=== PATIENT | male | born 1990 | race Two or more races ===

== ENCOUNTER 2022-03-13 01:44 | Inpatient (IN) | payer OTHER, SELFPAY ==
[2022-03-13] VITALS (7 sets, daily range): BP systolic 134–164; BP diastolic 82–107; PULSE 76–137; RESP 18–26; TEMP 36.9; O2SAT 95–99; BMI 34.3
--- NOTE | 2022-03-13 | ECG_ITS ---
Test Reason : TACHYCARDIA Blood Pressure : / mmHG Vent. Rate : 123 BPM Atrial Rate : 123 BPM P-R Int : 112 ms QRS Dur : 074 ms QT Int : 296 ms P-R-T Axes : 048 048 009 degrees QTc Int : 423 ms Sinus tachycardia Otherwise normal ECG No previous ECGs available Referred By: Generic ED Physician Electronically Signed By:CHOCO LANG
--- NOTE | ~2022-03-13 | CT_ITS ---
EXAMINATION: CT ABDOMEN AND PELVIS WITHOUT CONTRAST CLINICAL INFORMATION: 31-year-old male with back pain and acute kidney injury. COMPARISON: None TECHNIQUE: Multidetector volumetric imaging was performed from the superior aspect of the liver through the pubic symphysis. Sagittal and coronal reformatted images were obtained on the technologist's workstation. This CT examination was performed using dose optimization techniques as appropriate, variously including the following: *Automated exposure control *Adjustment of mA and/or kV according to patient size (this includes techniques or standardized protocols for targeted exams where dose is matched to indication/reason for exam; i.e. extremities or head) *Use of iterative reconstruction technique DLP: 675 mGy-cm FINDINGS: Visualized lung bases are well aerated. The liver is normal in size but demonstrates diffusely decreased attenuation. The gallbladder is normal in appearance. The pancreas, spleen and adrenal glands are unremarkable. Symmetrically sized kidneys. No renal calculi or hydronephrosis bilaterally. Normal caliber loops of small and large bowel. Normal appendix. Normal caliber abdominal aorta. No retroperitoneal lymphadenopathy. The bladder is normal in appearance. The prostate gland is normal in size. No gross free pelvic fluid. No inguinal lymphadenopathy. No acute osseous abnormality. CT/CT abdomen pelvis wo con IMPRESSION: -No renal calculi or hydronephrosis of either kidney. -Diffusely decreased liver attenuation suggesting hepatic steatosis. Correlation with liver enzymes recommended. Fleischner guidelines were followed.
--- NOTE | 2022-03-13 02:54 | ED_ITS ---
HPI - General Adult General Chief complaint: Back Pain/Injury Stated complaint: L leg cramp/ lower back spasm Time Seen by Provider: 03/13/22 02:54 Source: patient Mode of arrival: ambulatory Limitations: no limitations History of Present Illness HPI narrative: Patient with history of prior back surgery without significant pain does not take any pain medicine today was working [employer] all day came home complaining of spasm in the back down to legs was tachycardic on arrival patient denied any use of drugs no fever no chills no urinary complaints patient does have history of hypertension but is not taking any medication patient been working [employer] outside all the time drinking fluids but may not be enough Related Data Allergies Allergy/AdvReac Type Severity Reaction Status Date / Time tramadol [TRAMADOL] Allergy Unknown RASH Verified 03/13/22 02:10 Review of Systems Review of Systems: Yes all other systems are reviewed and are negative [facility] Social History Social History Advance Directives: No Advance Directives Information Provided: No Physical Exam ED Vital Signs: Vital Signs - 24 hr 03/13/22 02:08 03/13/22 03:37 03/13/22 04:19 Temperature 98.5 F Pulse Rate 137 H 111 H 101 H Respiratory Rate 18 26 H 22 H Blood Pressure 164/107 H 147/103 H Pulse Oximetry 95 97 97 Oxygen Delivery Method Room Air Room Air Room Air BMI result Body Mass Index 34.3 Appearance: Alert. Oriented X3. No acute distress. Eyes: PERRLA, ENT: Pharynx normal. Oral Mucosa moist Neck: Normal inspection. Neck supple. CVS: Normal heart rate and rhythm. Pulses normal. Respiratory: No respiratory distress. Equal air entry bilateral, no wheezing/rales/rhonchi Abdomen: Soft and nontender. Bowel sounds are present, no mass palpable, no CVA tenderness Skin: Skin warm and dry. Normal skin color. Normal skin turgor. Extremities: No lower extremity edema. No calf tenderness back: Diffuse pain no focal spinal tenderness Neuro: Oriented X 3. No motor deficit. No sensory deficit Medical Decision Making MDM Narrative Medical decision making narrative: Patient has GENA with rhabdomyolysis will admit patient for IV hydration during stay in the ED video network engineer showed frequent SVT lasting only for few seconds Lab Data Lab results reviewed: Yes I reviewed the patient's lab results. Result diagrams: 03/13/22 03:12 03/13/22 03:12 Labs: Lab Results 03/13/22 03/13/22 03/13/22 Range/Units 03:12 03:12 03:12 WBC 17.6 H (4.8-10.8) X10*3/uL RBC 5.15 (4.60-5.80) X10*6/uL Hgb 15.7 (14.0-18.0) g/dl Hct 45.7 (42.0-52.0) % MCV 88.7 (80.0-98.0) fL MCH 30.5 (27.0-33.0) pg MCHC 34.4 (31.0-36.0) g/dl RDW 13.3 (11.0-16.0) % Plt Count 255 (160-400) X10*3/uL MPV 11.1 (9.4-12.4) fL Immature Gran % (Auto) 0.4 (0.0-0.4) % Neut % (Auto) 82.1 H (45-73) % Lymph % (Auto) 10.6 L (20-40) % [place] % (Auto) 6.8 (2-11) % Eos % (Auto) 0.0 (0-4) % Baso % (Auto) 0.1 (0-2) % Lymph # (Auto) 1.9 (1.2-4.9) X10*3/uL [place] # (Auto) 1.2 (0.1-1.2) X10*3/uL Eos # (Auto) 0.0 (0.0-0.4) X10*3/uL Baso # (Auto) 0.0 (0.0-0.2) X10*3/uL Abs Immat Gran (auto) 0.07 H (0.00-0.03) X10*3/uL Absolute Neuts (auto) 14.5 H (2.0-8.3) x10*3/uL Absolute Nucleated RBC 0.000 (0.0-0.012) X10*3/uL Nucleated RBC % (auto) 0.0 (0.0-0.2) /100WBC Sodium 136 (135-145) mmol/L Potassium 4.1 (3.3-5.1) mmol/L Chloride 98 (96-108) mmol/L Carbon Dioxide 20 L (22-29) mmol/L Anion Gap 22 H (12-20) BUN 24 H (9-16) mg/dL Creatinine 2.16 H (0.5-1.4) mg/dL Estim Creat Clear Calc 51.2 Estimated GFR 36 Random Glucose 100 (60-115) mg/dL Calcium 10.9 H (8.4-10.2) mg/dL Total Bilirubin 1.0 (0.0-1.0) mg/dL AST 51 H (5-37) U/L ALT 36 (0-40) U/L Alkaline Phosphatase 118 H (39-117) U/L Total Creatine Kinase 1249 H (38-174) U/L Total Protein 9.7 H (6.5-8.0) g/dL Albumin 5.6 H (3.5-5.0) g/dL COVID-19 (PEGGY) Negative (Negative) COVID-19 Clin Com See Note Discharge Plan Discharge Clinical Impression: Acute renal failure due to rhabdomyolysis Patient Disposition: Admitted As Inpatient
[2022-03-13 03:18] LABS: Basophils Percent Auto 0.1 % (0-2); Hematocrit 45.7 % (42.0-52.0); Hemoglobin 15.7 g/dl (14.0-18.0); Imm Gran Abs Auto 0.07 X10*3/uL (0.00-0.03); Imm Gran Pct Auto 0.4 % (0.0-0.4); Lymphocytes Absolute Auto 1.9 X10*3/uL (1.2-4.9); Lymphocytes Percent Auto 10.6 % (20-40); MANUAL DIFF FLAG NO; Mean Corpuscular HGB Conc 34.4 g/dl (31.0-36.0); Mean Corpuscular Hemoglobin 30.5 pg (27.0-33.0); Mean Corpuscular Volume 88.7 fL (80.0-98.0); Mean Platelet Volume 11.1 fL (9.4-12.4); Monocytes Absolute Auto 1.2 X10*3/uL (0.1-1.2); Monocytes Percent Auto 6.8 % (2-11); Neutrophils Absolute Auto 14.5 x10*3/uL (2.0-8.3); Neutrophils Percent Auto 82.1 % (45-73); Platelet Count 255 X10*3/uL (160-400); Red Blood Count 5.15 X10*6/uL (4.60-5.80); Red Cell Distribution Width 13.3 % (11.0-16.0); White Blood Count 17.6 X10*3/uL (4.8-10.8)
[2022-03-13] MEDS: Cyclobenzaprine HCl 10 MG TABLET PO (03:27)
[2022-03-13 03:34] LABS: COVID-19 Test Negative (Negative)
[2022-03-13] MEDS: 0.9 % Sodium Chloride 1,000 ML 999 ML IV ×2 (03:35→05:47)
[2022-03-13] MEDS: Ketorolac Tromethamine 30 MG/ML VIAL IVPUSH (03:37)
[2022-03-13 03:41] LABS: Alanine Aminotransferase 36 U/L (0-40); Albumin Level 5.6 g/dL (3.5-5.0); Alkaline Phosphatase 118 U/L (39-117); Anion Gap 22 (12-20); Aspartate Amino Transferase 51 U/L (5-37); Blood Urea Nitrogen 24 mg/dL (9-16); Calcium 10.9 mg/dL (8.4-10.2); Carbon Dioxide 20 mmol/L (22-29); Chloride 98 mmol/L (96-108); Creatinine Clr Calc Pharmacy 51.2; Estimated Glomerular Filt Rate 36; Glucose Random 100 mg/dL (60-115); Potassium 4.1 mmol/L (3.3-5.1); Sodium 136 mmol/L (135-145); Total Protein 9.7 g/dL (6.5-8.0)
[2022-03-13 05:48] LABS: Influenza A Negative (Negative); Influenza B2 Negative (Negative)
[2022-03-13 05:51] LABS: Lactic Acid 1.1 mmol/L (0.5-2.0)
--- NOTE | 2022-03-13 07:08 | P.HPHOSP_ITS ---
History of Present Illness Date of Service: 03/13/22 Chief Complaint: back pain 31M with no significant past medical history Presented with back spasms. patient states that he has had lower back pain for about 1 week, 06/26, radiating down left leg, worse on exertion, relieved by rest. He denies taking any medications for this. Patient works at [employer] and has been outside over the weekend with >90F degrees temperatures. in ED patient noted to be in acute kidney injury with mild rhabdomyolysis with CPK about 1200, creatinine 2.16, hemoconcentrated. Review of Systems Review of Systems: Constitutional: Denies fever, denies Chills Eyes: denies blurry vision ENT: denies sore throat CVS: denies chest pain Respiratory: Denies dyspnea GI: no abdominal pain : denies dysuria MSK: back pain Skin: denies rash Neuro: denies specific motor weakness Psych: denies suicidal ideation Endocrine: denies heat/cold intolerance Hematologic: denies easy bleeding Allergy: denies hives PMFSH Family History Father Hypertension Social History Alcohol intake: former Patient Tobacco Use Status: Never used Tobacco Substance Use Type: Marijuana Substance Use Type Other:: history of cocaine, no longer using Advance Directives: No Advance Directives Information Provided: No Meds Allergies Allergy/AdvReac Type Severity Reaction Status Date / Time tramadol [TRAMADOL] Allergy Unknown RASH Verified 03/13/22 02:10 Active Medications: Current Medications Acetaminophen (Acetaminophen 325 Mg Tablet) 650 mg PO Q6H PRN PRN Reason: Pain, Mild (Pain Scale 1-3) Lactated Ringer's (Lr) 1,000 mls @ 125 mls/hr IVCONT .Q8H [facility] Pharmacy Consult (Consult Rx Perform Med Rec) 1 each MISCELLANE ONCE PRN PRN Reason: Consult order Pharmacy Consult (Consult Rx Perform Med Rec) 1 each MISCELLANE ONCE PRN PRN Reason: Consult order Sodium Chloride (0.9 % Sodium Chloride Flush 3 Ml Syringe) 3 ml IVFLUSH QSHIFT [facility] Physical Exam Vital Signs and Narrative: Vital Signs: Last Vital Signs Temp 98.5 F 03/13/22 02:08 Pulse 109 H 03/13/22 06:03 Resp 20 03/13/22 06:03 BP 136/86 03/13/22 06:03 Pulse Ox 97 03/13/22 06:03 O2 Del Method 03/13/22 06:03 BMI result Body Mass Index 34.3 General: no acute distress HEENT: atraumatic Neck: normal to visual inspection CVS: S1, S2, RRR Resp: CTA bilateral Chest: non tender GI: soft, non tender, non distended : no CVA tenderness Skin: no rashes Extremities: no edema Neuro: Oriented X3, grossly intact Psych: cooperative Results Labs CBC and Chem 7: 03/13/22 03:12 03/13/22 03:12 Labs: Laboratory Results - last 24 hr 03/13/22 03/13/22 03/13/22 03:12 03:12 03:12 MCV 88.7 MCH 30.5 MCHC 34.4 RDW 13.3 Plt Count 255 MPV 11.1 Immature Gran % (Auto) 0.4 Neut % (Auto) 82.1 H Lymph % (Auto) 10.6 L [place] % (Auto) 6.8 Eos % (Auto) 0.0 Baso % (Auto) 0.1 Lymph # (Auto) 1.9 [place] # (Auto) 1.2 Eos # (Auto) 0.0 Baso # (Auto) 0.0 Abs Immat Gran (auto) 0.07 H Absolute Neuts (auto) 14.5 H Absolute Nucleated RBC 0.000 Nucleated RBC % (auto) 0.0 Anion Gap 22 H Estim Creat Clear Calc 51.2 Estimated GFR 36 Random Glucose 100 Lactic Acid Calcium 10.9 H Total Bilirubin 1.0 AST 51 H ALT 36 Alkaline Phosphatase 118 H Total Creatine Kinase 1249 H Total Protein 9.7 H Albumin 5.6 H COVID-19 (PEGGY) Negative COVID-19 Clin Com See Note Influenza Type A (SNEHA) Influenza Type B (SNEHA) Influenza A & B Note 03/13/22 03/13/22 05:28 05:28 MCV MCH MCHC RDW Plt Count MPV Immature Gran % (Auto) Neut % (Auto) Lymph % (Auto) [place] % (Auto) Eos % (Auto) Baso % (Auto) Lymph # (Auto) [place] # (Auto) Eos # (Auto) Baso # (Auto) Abs Immat Gran (auto) Absolute Neuts (auto) Absolute Nucleated RBC Nucleated RBC % (auto) Anion Gap Estim Creat Clear Calc Estimated GFR Random Glucose Lactic Acid 1.1 Calcium Total Bilirubin AST ALT Alkaline Phosphatase Total Creatine Kinase Total Protein Albumin COVID-19 (PEGGY) COVID-19 Clin Com Influenza Type A (SNEHA) Negative Influenza Type B (SNEHA) Negative Influenza A & B Note See Note Assessment and Plan (1) Acute renal failure due to rhabdomyolysis: Status: Acute Plan 31M presented with back pain found to be in acute kidney injury GENA most likely severe dehydration due to hot weather, mild rhabdomyolysis aggressive hydration monitor BMP will check CT abdomen to rule out obstruction obesity weight loss recommended DVT prophylaxis -early ambulation, low risk full code patient with significant acute kidney injury requiring IV hydration and close monitoring therefore expected require least 2 midnights in the hospital Quality Stroke Does the patient have a stroke diagnosis?: No VTE Prior VTE?: No VTE Risk Level:: Medical - low VTE Device Contraindication: Treatment Not Indicated VTE Drug Contraindication: Treatment Not Indicated
[2022-03-13] MEDS: Lactated Ringers 1,000 ML 125 ML IVCONT (07:59)
--- NOTE | 2022-03-13 09:53 | PHA.MEDREC ---
Pharmacy Consult ? Medication Reconciliation Pharmacy has completed the medication reconciliation. Patient confirmed all medications. Reports using PRN and takes no OTC. Claire Pineda, DcD
[2022-03-13 11:48] LABS: Appearance Urine HAZY; Color Urine YELLOW; Glucose Urine UA NEG (NEG); Leukocyte Esterase Urine NEG (NEG); Nitrite Urine NEG (NEG); PH 5.5 (5.0-8.0); Specific Gravity - Urine >= 1.030 (1.005-1.025); Urine Blood NEG (NEG); Urine Ketones 15 MG/DL (NEG); Urine Protein TRACE MG/DL (NEG-TRACE)
[2022-03-13 12:20] LABS: Amphetamine Screen Urine Not Detected (Not Detect); Barbiturates, Urine Not Detected (Not Detect); Benzodiazepines Screen Urine Not Detected (Not Detect); Cocaine Screen Urine Not Detected (Not Detect); Fentanyl, urine Not Detected (Not Detect); Opiate Screen Urine Not Detected (Not Detect)
--- NOTE | 2022-03-13 13:42 | PC.NURSE ---
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 this contract writer asked pt if he could call his seal delivery vehicle officer and let him know that he was admitted to the hospital. pt stated that he did not know the number and his cell phone was at home. pt given education on risks of leaving against medical advice. pt verbalized understanding. Adriana, Clinical Coordinator present during conversation between this contract writer and pt. paperwork signed by pt, witnessed by this contract writer and Adriana, Clinical Coordinator.
--- NOTE | 2022-03-13 13:50 | MHC.CM.PN ---
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 PT REPORTS HE IS COVID VACCINATED AND HAS RECEIVED ONE [employer] PT SIGNED OUT AMA SHORTLY AFTER INTERVIEW HE REPORTS HE WILL RETURN IF NEEDED HOWEVER NEEDS TO CHECK IN WITH HIS PROGRAM AND CHARGE HIS [employer] PASS PROVIDED
--- NOTE | 2022-03-13 15:31 | PM.DS ---
DS: Providers Provider Date of Service: 03/13/22 Date of admission: 03/13/22 07:06 Primary care physician: Unknown Physician DS: Diagnosis Discharge Diagnosis (1) Acute renal failure due to rhabdomyolysis: Status: Acute DS: Summary Hospital Course Hospital Course: from initial hpi: Chief Complaint: back pain 31M? with no significant past medical history ? Presented with back spasms.? patient states that he has had lower back pain for about 1 week, /10, radiating down left leg, worse on exertion, relieved by rest.? He denies taking any medications for this.? Patient works at [employer] and has been outside over the weekend with >90F degrees? temperatures.? in ED patient noted to be in acute kidney injury with mild rhabdomyolysis with CPK about 1200, creatinine 2.16, hemoconcentrated. hospital course: Patient was admitted for acute kidney injury likely due to dehydration, mild rhabdomyolysis. He was treated with IV fluids. CT abdomen did not show any evidence of obstruction, did show fatty liver. Patient also noted to be morbidly obese and weight loss is recommended. Plan was to continue hydration and monitor BMP closely due to significant acute kidney injury, however, patient left against medical advice prior to being seen by physician, he demonstrated understanding of his decision to nursing. Time Spent with Patient Time attestation: Total time spent providing and/or coordinating discharge services: Discharge coordination time: Greater than 30 minutes Quality: Safe Use of Opioids Does Pt have an Active Cancer Diagnosis on the Problem List?: No Quality: Stroke Does the patient have a stroke diagnosis?: No Physical Exam Vital Signs: Vital Signs: Last Vital Signs Temp 98.5 F 03/13/22 02:08 Pulse 76 03/13/22 13:18 Resp 20 03/13/22 13:18 BP 138/84 03/13/22 13:18 Pulse Ox 99 03/13/22 13:18 O2 Del Method 03/13/22 13:18 BMI result Body Mass Index 34.3 General: AO X 3, no acute distress Resp: CTA bilateral, no accessory muscles used CVS: S1,S2,RRR GI: soft, non tender, non distended Neuro: motor grossly intact, alert Psych: appropriate affect, appropriate insight DS: Data Data Completed and Pending Labs on day of discharge: Laboratory Results - last 24 hr 03/13/22 03/13/22 03/13/22 03:12 03:12 03:12 WBC 17.6 H RBC 5.15 Hgb 15.7 Hct 45.7 MCV 88.7 MCH 30.5 MCHC 34.4 RDW 13.3 Plt Count 255 MPV 11.1 Immature Gran % (Auto) 0.4 Neut % (Auto) 82.1 H Lymph % (Auto) 10.6 L [place] % (Auto) 6.8 Eos % (Auto) 0.0 Baso % (Auto) 0.1 Lymph # (Auto) 1.9 [place] # (Auto) 1.2 Eos # (Auto) 0.0 Baso # (Auto) 0.0 Abs Immat Gran (auto) 0.07 H Absolute Neuts (auto) 14.5 H Absolute Nucleated RBC 0.000 Nucleated RBC % (auto) 0.0 Sodium 136 Potassium 4.1 Chloride 98 Carbon Dioxide 20 L Anion Gap 22 H BUN 24 H Creatinine 2.16 H Estim Creat Clear Calc 51.2 Estimated GFR 36 Random Glucose 100 Lactic Acid Calcium 10.9 H Total Bilirubin 1.0 AST 51 H ALT 36 Alkaline Phosphatase 118 H Total Creatine Kinase 1249 H Total Protein 9.7 H Albumin 5.6 H Urine Color Urine Appearance Urine pH Ur Specific [place] Urine Protein Urine Glucose (UA) Urine Ketones Urine Blood Urine Nitrite Ur Leukocyte Esterase Urine Opiates Screen Urine Fentanyl Screen Ur Barbiturates Screen Ur Phencyclidine Scrn Ur Amphetamines Screen U Benzodiazepines Scrn Urine Cocaine Screen U Marijuana (THC) Screen COVID-19 (PEGGY) Negative COVID-19 Clin Com See Note Influenza Type A (SNEHA) Influenza Type B (SNEHA) Influenza A & B Note 03/13/22 03/13/22 03/13/22 05:28 05:28 11:39 WBC RBC Hgb Hct MCV MCH MCHC RDW Plt Count MPV Immature Gran % (Auto) Neut % (Auto) Lymph % (Auto) [place] % (Auto) Eos % (Auto) Baso % (Auto) Lymph # (Auto) [place] # (Auto) Eos # (Auto) Baso # (Auto) Abs Immat Gran (auto) Absolute Neuts (auto) Absolute Nucleated RBC Nucleated RBC % (auto) Sodium Potassium Chloride Carbon Dioxide Anion Gap BUN Creatinine Estim Creat Clear Calc Estimated GFR Random Glucose Lactic Acid 1.1 Calcium Total Bilirubin AST ALT Alkaline Phosphatase Total Creatine Kinase Total Protein Albumin Urine Color YELLOW Urine Appearance HAZY Urine pH 5.5 Ur Specific [place] >= 1.030 H Urine Protein TRACE Urine Glucose (UA) NEG Urine Ketones 15 Urine Blood NEG Urine Nitrite NEG Ur Leukocyte Esterase NEG Urine Opiates Screen Urine Fentanyl Screen Ur Barbiturates Screen Ur Phencyclidine Scrn Ur Amphetamines Screen U Benzodiazepines Scrn Urine Cocaine Screen U Marijuana (THC) Screen COVID-19 (PEGGY) COVID-19 Clin Com Influenza Type A (SNEHA) Negative Influenza Type B (SNEHA) Negative Influenza A & B Note See Note 03/13/22 11:39 WBC RBC Hgb Hct MCV MCH MCHC RDW Plt Count MPV Immature Gran % (Auto) Neut % (Auto) Lymph % (Auto) [place] % (Auto) Eos % (Auto) Baso % (Auto) Lymph # (Auto) [place] # (Auto) Eos # (Auto) Baso # (Auto) Abs Immat Gran (auto) Absolute Neuts (auto) Absolute Nucleated RBC Nucleated RBC % (auto) Sodium Potassium Chloride Carbon Dioxide Anion Gap BUN Creatinine Estim Creat Clear Calc Estimated GFR Random Glucose Lactic Acid Calcium Total Bilirubin AST ALT Alkaline Phosphatase Total Creatine Kinase Total Protein Albumin Urine Color Urine Appearance Urine pH Ur Specific [place] Urine Protein Urine Glucose (UA) Urine Ketones Urine Blood Urine Nitrite Ur Leukocyte Esterase Urine Opiates Screen Not Detected Urine Fentanyl Screen Not Detected Ur Barbiturates Screen Not Detected Ur Phencyclidine Scrn POSITIVE H Ur Amphetamines Screen Not Detected U Benzodiazepines Scrn Not Detected Urine Cocaine Screen Not Detected U Marijuana (THC) Screen POSITIVE H COVID-19 (PEGGY) COVID-19 Clin Com Influenza Type A (SNEHA) Influenza Type B (SNEHA) Influenza A & B Note Discharge Plan Discharge Patient Disposition: Left Against Medical Advice Discharge Diagnosis: becca Referrals: Physician,Unknown J [Primary Care Provider] - 1 Week Discharge Medications: No Action trazodone 50 mg tablet 1 tab PO BEDTIME PRN (Reason: nightmare) mirtazapine 15 mg tablet 1 tab PO BEDTIME PRN (Reason: Insomnia) prazosin 2 mg capsule 1 cap PO BEDTIME PRN (Reason: Insomnia) Discharge Orders: Discharge Order (Routine); Ordered 03/13/22 Ordered By: Ja Harding Care Plan Goals: left ama Health Concerns: left ama Plan of Treatment: left ama Assessment: left ama
[2022-03-13 16:07] LABS: Cannabinoid Screen Urine POSITIVE (Not Detect); Phencyclidine Screen Urine POSITIVE (Not Detect)
== END 2022-03-13 23:07 | disposition left against medical advice (07) | DRG 351 ==
LOC: HO.ED 05:00 → HO.EDOVER 07:09
PROVIDERS: Admitting Provider Internal Medicine; Emergency Provider Internal Medicine; Visit Provider Internal Medicine
DX: M62.82 Rhabdomyolysis (principal); N17.9 Acute kidney failure, unspecified; E66.9 Obesity, unspecified; E86.0 Dehydration; Z20.822 Contact with and (suspected) exposure to COVID-19; Z56.0 Unemployment, unspecified; Z68.34 Body mass index [BMI] 34.0-34.9, adult; Z88.5 Allergy status to narcotic agent; Z79.899 Other long term (current) drug therapy
CPT/HCPCS: 36415; 74176; 80053; 80307; 81003; 82550; 83605; 85025; 87040; 87502; 87635; 93005; 96361; 96374; 99285; J1885

== ENCOUNTER 2023-02-08 20:02 | Emergency (ER) | payer MEDICAID, SELFPAY ==
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
[2023-02-08 20:13] VITALS: BP 147/107; BP 156/87; PULSE 107; PULSE 80; RESP 12; TEMP 36.8; O2SAT 96; O2SAT 97; BMI 28.1
[2023-02-08 20:33] LABS: MANUAL DIFF FLAG NO
[2023-02-08 20:35] LABS: Basophils Percent Auto 0.3 % (0-2); Eosinophils Percent Auto 0.1 % (0-4); Hemoglobin 14.1 g/dl (14.0-18.0); Imm Gran Abs Auto 0.04 X10*3/uL (0.00-0.03); Imm Gran Pct Auto 0.4 % (0.0-0.4); Lymphocytes Absolute Auto 2.5 X10*3/uL (1.2-4.9); Lymphocytes Percent Auto 22.2 % (20-40); Mean Corpuscular HGB Conc 34.4 g/dl (31.0-36.0); Mean Corpuscular Hemoglobin 30.8 pg (27.0-33.0); Mean Corpuscular Volume 89.5 fL (80.0-98.0); Mean Platelet Volume 10.9 fL (9.4-12.4); Monocytes Absolute Auto 0.6 X10*3/uL (0.1-1.2); Monocytes Percent Auto 5.2 % (2-11); Neutrophils Absolute Auto 8.1 x10*3/uL (2.0-8.3); Neutrophils Percent Auto 71.8 % (45-73); Platelet Count 280 X10*3/uL (160-400); Red Blood Count 4.58 X10*6/uL (4.60-5.80); Red Cell Distribution Width 13.2 % (11.0-16.0); White Blood Count 11.3 X10*3/uL (4.8-10.8)
--- NOTE | 2023-02-08 20:51 | PC.NURSE ---
pt placed on bus driver/monitor. c collar remains in place. iv line placed R AC. lab work obtained and sent down to lab. pt denies substance use. pt resting on stretcher dr ospina made aware of pt status. pt awaiting to be seen by at this time
[2023-02-08 21:04] LABS: Alanine Aminotransferase 25 U/L (0-40); Albumin Level 4.7 g/dL (3.5-5.0); Alkaline Phosphatase 82 U/L (39-117); Anion Gap 14 (12-20); Aspartate Amino Transferase 26 U/L (5-37); Bilirubin Total 0.5 mg/dL (0.0-1.0); Blood Urea Nitrogen 10 mg/dL (9-16); Calcium 10.1 mg/dL (8.4-10.2); Carbon Dioxide 26 mmol/L (22-29); Chloride 105 mmol/L (96-108); Estimated Glomerular Filt Rate > 60; Glucose Random 91 mg/dL (60-115); Potassium 3.8 mmol/L (3.3-5.1); Sodium 141 mmol/L (135-145); Total Protein 7.8 g/dL (6.5-8.0)
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
[2023-02-08 22:00] VITALS: BP 151/98; PULSE 64; RESP 18; TEMP 36.9; O2SAT 97
[2023-02-08 23:17] VITALS: BP 149/90; PULSE 60; RESP 16; O2SAT 96
--- NOTE | 2023-02-08 23:30 | PC.NURSE ---
pt calm and cooperative. pt at bedside. iv removed at discharge vss. pt provided with wheelchair for discharge by medical anthropology director. pt provided with discharge packet and reports from imaging. pt verbalized understanding of discharge plan
== END 2023-02-08 23:30 | disposition home or self-care (01) ==
PROVIDERS: Emergency Provider Emergency Medicine
DX: S09.90XA Unspecified injury of head, initial encounter (principal); S00.03XA Contusion of scalp, initial encounter; R51.9 Headache, unspecified; M54.2 Cervicalgia; M25.552 Pain in left hip; M25.551 Pain in right hip; V19.40XA Pedal cycle driver injured in collision with unspecified motor vehicles in traffic accident, initial encounter; Y93.9 Activity, unspecified; Y92.9 Unspecified place or not applicable; Y99.9 Unspecified external cause status; Z79.899 Other long term (current) drug therapy
CPT/HCPCS: 36415; 70450; 72125; 73522; 80053; 85025; 99284

== ENCOUNTER 2023-02-10 03:30 | Emergency (ER) | payer MEDICAID, SELFPAY ==
[2023-02-10 03:30] VITALS: BP 135/91; BP 150/90; PULSE 118; PULSE 90; RESP 20; TEMP 36.6; O2SAT 96; O2SAT 99
--- NOTE | 2023-02-10 03:45 | PC.NURSE ---
Pt arrives by EMS, placed in room 2. Pt leaving from room 2 immediately after being triaged by RN prior to seeing MD.
--- NOTE | 2023-02-10 03:45 | PC.NURSE ---
After assessment by RN, pt ambulated to bathroom with steady gait, returned to room without complications. This RN was then notified that pt left room and departed facility without being assessed by provider.
== END 2023-02-10 03:52 | disposition left against medical advice (07) ==
PROVIDERS: Emergency Provider Emergency Medicine
DX: Z04.1 Encounter for examination and observation following transport accident (principal); M79.605 Pain in left leg
CPT/HCPCS: 99281; 99283

== ENCOUNTER 2023-09-07 06:36 | Emergency (ER) | payer MEDICAID, SELFPAY ==
[2023-09-07 06:43] VITALS: BP 144/89; PULSE 68; RESP 17; TEMP 37; O2SAT 98
[2023-09-07 06:46] VITALS: BP 130/82; BP 144/89; PULSE 103; PULSE 68; RESP 18; TEMP 37; O2SAT 97; O2SAT 98; BMI 32.6
--- NOTE | 2023-09-07 06:49 | ED.MALEGU ---
HPI - Male Genitourinary General Chief complaint: Urogenital-Male Stated complaint: DISCHARGE FROM PENIS Time Seen by Provider: 09/07/23 06:41 Source: patient, RN notes reviewed and old records reviewed Mode of arrival: ambulatory History of Present Illness HPI Narrative: 33-year-old male with a significant past medical history presenting to the ED complaining green penile discharge x few days s/p intercourse with female partner. Patient denies using protection. States has been incarcerated and now sexually active with one partner. Denies fever/chills, dysuria/hematuria, abdominal pain, flank pain Complaint: penile discharge Onset (ago): day(s) (few) Duration: constant Location: penis Radiation: penis Severity: moderate Quality: burning Relieving factors: urination Exacerbating factors: none Context: other (just out of detention and now having sex with female partner) Associated symptoms: Reports discharge Related Data Home Medications Medication Instructions Recorded Confirmed mirtazapine 15 mg tablet 1 tab PO BEDTIME PRN Insomnia 03/13/22 03/13/22 prazosin 2 mg capsule 1 cap PO BEDTIME PRN Insomnia 03/13/22 03/13/22 trazodone 50 mg tablet 1 tab PO BEDTIME PRN nightmare 03/13/22 03/13/22 Previous Rx's Medication Instructions Recorded cyclobenzaprine 10 mg tablet 10 mg PO TID PRN muscle spasm #7 02/08/23 tabs ibuprofen 600 mg tablet 600 mg PO Q6H PRN fever or pain 02/08/23 #14 tabs doxycycline hyclate 100 mg capsule 100 mg PO BID 7 days #14 caps 09/07/23 nitrofurantoin 100 mg PO Q12H 7 days #14 caps 09/07/23 monohydrate/macrocrystals 100 mg capsule (Macrobid) ondansetron 4 mg disintegrating 4 mg PO Q8H PRN nausea and 09/07/23 tablet vomiting #20 tabs Allergies Allergy/AdvReac Type Severity Reaction Status Date / Time tramadol [TRAMADOL] Allergy Unknown RASH Verified 03/13/22 02:10 Review of Systems Review of Systems: Constitutional:No Fever, No Chills ENT/Mouth: No Ear Pain, No Nasal Congestion, No sore throat, No Rhinorrhea, No Swallowing Difficulty Cardiovascular: No Chest Pain, No SOB Respiratory: No Cough Gastrointestinal: No Nausea, No Vomiting, No Diarrhea, No Constipation, No Abdominal pain Genitourinary: +penile discharge, No Dysuria, No Urinary Frequency, No Hematuria, No Urinary Incontinence/retention, No Flank Pain Musculoskeletal: No joint pain, No Myalgias Skin: No Skin Lesions, No rash Yes all other systems are reviewed and are negative Constitutional: Constitutional: Reports as per [facility] Past Medical History Attestation statement: The following information was validated with the patient. 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 Frequency: Daily Advance Directives: No Advance Directives Information Provided: No Advance Directives Date on File: 03/13/22 service: No Current occupational status: unemployed Physical Exam Vital Signs: Vital Signs: Last Vital Signs Temp 98.6 F 09/07/23 06:46 Pulse 81 09/07/23 07:28 Resp 18 09/07/23 07:28 BP 131/75 09/07/23 07:28 Pulse Ox 98 09/07/23 07:28 O2 Del Method Room Air 09/07/23 07:28 BMI result Body Mass Index 32.6 Const: General: cooperative, healthy appearing and no acute distress Orientation/consciousness: patient oriented x3 Limitations: no limitations HEENT: Head: Yes normal to inspection and Yes atraumatic Ears: hearing grossly normal bilaterally General nose exam: Normal external nose present Face and sinus: Yes normal facial exam Eyes: General: appearance normal, both eyes and all related structures EOM: EOMs intact bilaterally Neck: Neck: Yes normal visual inspection and Yes no meningeal signs Resp: Effort & Inspection: normal respiratory effort and no respiratory distress Cardio: Rate: regular rate GI: Inspection: Yes normal to inspection Palpation (GI): Soft to palpation, nontender, no guarding and not rigid : General: Yes no CVA tenderness Penis: circumcised, no vesicles, no ulcerations and other (green discharge from meatus) Back/Spine/Pelvis: Back: no CVA tenderness Skin: Rashes: no rashes Wounds: no wounds Neuro: General: patient oriented x3, tone normal and no meningeal signs Cranial nerves: Yes CN's II-XII intact bilaterally Gait exam (Neuro): Normal gait present Extrem: General: Yes normal to inspection Course Course Course Narrative: 6083--UA with wbc's, leuk esterase and blood > will also treat empirically with Macrobid for UTI Results discussed with patient including worrisome signs and symptoms and strict return precautions, and when to return to the emergency department. They verbalized understanding and feel safe for discharge at this time. Medications Administered Discontinued Medications Generic Name Dose Route Start Last Admin Trade Name Freq PRN Reason Stop Dose Admin Ceftriaxone Sodium 500 mg/ 0 mg 09/07/23 06:39 09/07/23 07:09 Lidocaine HCl 1 ml IM 09/07/23 06:40 350 kit ONCE ONE Administration Doxycycline Monohydrate 100 mg 09/07/23 06:39 09/07/23 07:10 Doxycycline Monohydrate 100 Mg Capsule PO 09/07/23 06:40 100 mg ONCE ONE Administration Medical Decision Making Medical Decision Making [facility] Narrative: 33-year-old male with a significant past medical history presenting to the ED complaining green penile discharge x few days s/p intercourse with female partner. On exam VSS, NAD, nontoxic appearing abdomen soft/nontender, green penile discharge noted. No lesions/ulcerations. Physical exam performed by Dr. Childers. Concern for STI. Low suspicion for testicular torsion, epididymitis or orchitis plan: STI testing, UA, empiric IM Rocephin and p.o. doxycycline Please refer to course for remaining clinical decision making, interpretation of labs/imaging results, and discussions with consultants and/or family members. Results discussed with patient including worrisome signs and symptoms and strict return precautions, and when to return to the emergency department. They verbalized understanding and feel safe for discharge at this time. Differential Diagnosis Differential Diagnoses: The differential diagnosis associated with the presentation includes As above Lab Data [facility] Lab Attestation statement: I reviewed the patient's lab results. Labs: Lab Results 09/07/23 Range/Units 06:45 Urine Color Yellow Urine Appearance Cloudy Urine pH 5.5 (5.0-9.0) Ur Specific [place] <= 1.005 (1.005-1.025) Urine Protein Negative (Neg-Trace) mg/dL Urine Glucose (UA) Negative (Negative) mg/dL Urine Ketones Negative (Negative) mg/dL Urine Blood Small (1+) H (Negative) Urine Nitrite Negative (Negative) Ur Leukocyte Esterase Large (3+) H (Negative) Urine RBC 0-2 (0-2) /HPF Urine WBC >50 H (0-5) /HPF Urine WBC Clumps Present Ur Squamous Epith Cells 0-2 (0-2) /HPF Urine Bacteria None Seen (None Seen) Hyaline Casts 0-2 (0-2) /LPF Radiology Impression Discussion of test interpretation with radiology: I have reviewed the radiologist's reading. External Record Review External record reviewed: Inpatient record, Office record, Outpatient record, Prior outpatient labs, Prior outpatient radiology, Primary care record and Outside ED record Tests considered The following testing was considered but not selected: As above Prescription Management I considered prescription management with: Antibiotic Social Determinants Patient?s care significantly limited by Social Determinants of Health including: Low income, Problems related to primary support group and Unemployment Discharge Plan Discharge Clinical Impression: Urethritis Patient Disposition: Home, Self-Care Instructions: Sexually Transmitted Diseases (ED), Gonorrhea (ED) Additional Instructions: you were treated for gonorrhea and will prescribed antibiotics for chlamydia it is assumed based off your exam you have gonorrhea. further testing for HIV, herpes and syphillis [facility]. finish all antibiotics. your partner needs to be tested and treated. no sexual intercourse for 10 days. if you have sex again with untreated partner you will be reinfected. practive safe sex and use a condom return for fevers, no improvement, worsening symptoms or any other concerns. Macrobid is antibiotic use to treat urinary tract infection, please also take as prescribed until completion On doxycycline, do not take pills immediately before going to bed and swallow pills with plenty of water. Avoid direct sunlight, iron, antacids, and Pepto Bismol. Call your provider if you develop new ringing in your ears, new problems hearing, dizziness, difficulty swallowing, rash, abdominal discomfort, nausea, or diarrhea.? Prescriptions: New doxycycline hyclate 100 mg capsule 100 mg PO BID 7 Days Qty: 14 0RF ondansetron 4 mg tablet,disintegrating 4 mg PO Q8H PRN (Reason: nausea and vomiting) Qty: 20 0RF nitrofurantoin monohyd/m-cryst [Macrobid] 100 mg capsule 100 mg PO Q12H 7 Days Qty: 14 0RF Rx Instructions: must administer with a meal/food No Action trazodone 50 mg tablet 1 tab PO BEDTIME PRN (Reason: nightmare) mirtazapine 15 mg tablet 1 tab PO BEDTIME PRN (Reason: Insomnia) prazosin 2 mg capsule 1 cap PO BEDTIME PRN (Reason: Insomnia) ibuprofen 600 mg tablet 600 mg PO Q6H PRN (Reason: fever or pain) Qty: 14 0RF cyclobenzaprine 10 mg tablet 10 mg PO TID PRN (Reason: muscle spasm) Qty: 7 0RF Referrals: [facility] [Outside] Physician,Unknown J [Primary Care Provider] - Stand Alone Forms: Work/School Release
[2023-09-07] MEDS: cefTRIAXone sodium 500 MG, Lidocaine HCl 1 % MPF 1 ML IM (07:09)
[2023-09-07] MEDS: Doxycycline Monohydrate 100 MG CAPSULE PO (07:10)
[2023-09-07 07:13] LABS: Appearance Urine Cloudy; Color Urine Yellow; Glucose Urine UA Negative (Negative); Leukocyte Esterase Urine Large (3+) (Negative); Nitrite Urine Negative (Negative); PH 5.5 (5.0-9.0); Specific Gravity - Urine <= 1.005 (1.005-1.025); UMIC TRIGGER UACC YES; Urine Blood Small (1+) (Negative); Urine Ketones Negative (Negative); Urine Protein Negative (Neg-Trace)
[2023-09-07 07:28] VITALS: BP 131/75; PULSE 81; RESP 18; O2SAT 98
[2023-09-07 07:37] LABS: Bacteria Urine None Seen (None Seen); Hyaline Casts Urine 0-2 /LPF (0-2); RBC Urine 0-2 /HPF (0-2); Squamous Epithelial Cell Urine 0-2 /HPF (0-2); UACC Culture Trigger YES; WBC Clumps Urine Present; WBC Urine >50 /HPF (0-5)
[2023-09-07 12:20] LABS: CT PCR NOT DETECTED (Not Detect.); NG PCR DETECTED (Not Detect.)
== END 2023-09-07 08:02 | disposition home or self-care (01) ==
PROVIDERS: Emergency Provider Emergency Medicine
DX: A54.9 Gonococcal infection, unspecified (principal); R36.9 Urethral discharge, unspecified
CPT/HCPCS: 0353U; 81001; 81003; 87086; 96372; 99284; J0696

== ENCOUNTER 2024-08-09 14:32 | Emergency (ER) | payer MEDICAID, SELFPAY ==
--- NOTE | ~2024-08-09 | XR_ITS ---
EXAMINATION: XR CHEST CLINICAL INFORMATION: cough COMPARISON: March 29, 2020. TECHNIQUE: 2 views of the chest were obtained. FINDINGS: No significant abnormality is noted involving the heart, lungs, mediastinum, bony thorax or soft tissues. XR/XR chest 2V IMPRESSION: Normal chest PA and lateral. Electronically signed by: Jabari Alcantar MD 08/09/2024 06:57 PM [facility]
[2024-08-09 14:37] VITALS: BP 166/88; BP 174/118; PULSE 113; PULSE 118; RESP 18; TEMP 37.1; O2SAT 97; O2SAT 98; BMI 30.9
--- NOTE | 2024-08-09 15:00 | ECG_ITS ---
Test Reason : TACHYCARDIA Blood Pressure : / mmHG Vent. Rate : 101 BPM Atrial Rate : 101 BPM P-R Int : 144 ms QRS Dur : 086 ms QT Int : 308 ms P-R-T Axes : 042 021 010 degrees QTc Int : 399 ms Sinus tachycardia Minimal voltage criteria for LVH, may be normal variant ( R in aVL ) Borderline ECG When compared with ECG of 13-MAR-2022 02:15, No significant change was found Referred By: Generic ED Physician Electronically Signed By:WES LOPEZ MD
[2024-08-09 15:22] LABS: MANUAL DIFF FLAG NO
[2024-08-09 15:23] LABS: Basophils Percent Auto 0.2 % (0-2); Eosinophils Percent Auto 0.1 % (0-4); Hemoglobin 13.2 g/dl (14.0-18.0); Imm Gran Abs Auto 0.05 X10*3/uL (0.00-0.03); Imm Gran Pct Auto 0.3 % (0.0-0.4); Lymphocytes Absolute Auto 2.3 X10*3/uL (1.2-4.9); Lymphocytes Percent Auto 15.9 % (20-40); Mean Corpuscular HGB Conc 34.7 g/dl (31.0-36.0); Mean Corpuscular Hemoglobin 30.6 pg (27.0-33.0); Mean Corpuscular Volume 88.2 fL (80.0-98.0); Mean Platelet Volume 10.4 fL (9.4-12.4); Monocytes Absolute Auto 0.9 X10*3/uL (0.1-1.2); Neutrophils Absolute Auto 11.4 x10*3/uL (2.0-8.3); Neutrophils Percent Auto 77.5 % (45-73); Platelet Count 291 X10*3/uL (160-400); Red Blood Count 4.31 X10*6/uL (4.60-5.80); Red Cell Distribution Width 14.2 % (11.0-16.0); White Blood Count 14.7 X10*3/uL (4.8-10.8)
[2024-08-09 15:36] LABS: Alanine Aminotransferase 32 U/L (0-40); Albumin Level 4.5 g/dL (3.5-5.0); Alkaline Phosphatase 107 U/L (39-117); Anion Gap 15 (12-20); Aspartate Amino Transferase 28 U/L (5-37); Bilirubin Total 0.4 mg/dL (0.0-1.0); Blood Urea Nitrogen 8 mg/dL (9-16); Calcium 10.3 mg/dL (8.4-10.2); Carbon Dioxide 27 mmol/L (22-29); Chloride 101 mmol/L (96-108); Creatinine Clr Calc Pharmacy 107.6; Estimated Glomerular Filt Rate > 60; Glucose Random 93 mg/dL (60-115); Potassium 3.8 mmol/L (3.3-5.1); Sodium 139 mmol/L (135-145); Total Protein 8.3 g/dL (6.5-8.0)
[2024-08-09 16:09] VITALS: BP 138/94; PULSE 108; RESP 20; TEMP 36.8; O2SAT 99
--- NOTE | 2024-08-09 16:17 | ED_ITS ---
HPI - General Adult General Chief complaint: Skin/Abscess/Foreign Body Stated complaint: L SIDED ABD PAIN Time Seen by Provider: 08/09/24 16:03 Source: patient, RN notes reviewed and old records reviewed Mode of arrival: EMS Limitations: no limitations History of Present Illness ED Provider: Vicki HPI narrative: 34-year-old male who denies any past medical history presents for evaluation of a cyst his left abdomen. Patient reports he 1st noticed a small red area above his left hip about 3 days ago. The area has become more painful and swollen. He also endorses a dry cough, fevers, chills, body aches with nausea and vomiting. Denies any known sick contacts. He has no severe abdominal pain The patient does not believe he is a diabetic His pain is 7/10 No other complaints or concerns at this time Related Data Home Medications ?Medication ?Instructions ?Recorded ?Confirmed mirtazapine 15 mg tablet 1 tab PO BEDTIME PRN Insomnia 03/13/22 03/13/22 prazosin 2 mg capsule 1 cap PO BEDTIME PRN Insomnia 03/13/22 03/13/22 trazodone 50 mg tablet 1 tab PO BEDTIME PRN nightmare 03/13/22 03/13/22 Previous Rx's ?Medication ?Instructions ?Recorded cyclobenzaprine 10 mg tablet 10 mg PO TID PRN muscle spasm #7 02/08/23 tabs ibuprofen 600 mg tablet 600 mg PO Q6H PRN fever or pain 02/08/23 #14 tabs doxycycline hyclate 100 mg capsule 100 mg PO BID 7 days #14 caps 09/07/23 nitrofurantoin 100 mg PO Q12H 7 days #14 caps 09/07/23 monohydrate/macrocrystals 100 mg capsule (Macrobid) ondansetron 4 mg disintegrating 4 mg PO Q8H PRN nausea and 09/07/23 tablet vomiting #20 tabs cephalexin 500 mg tablet 500 mg PO QID #28 tabs 08/09/24 Allergies Allergy/AdvReac Type Severity Reaction Status Date / Time tramadol [TRAMADOL] Allergy Unknown RASH Verified 08/09/24 14:39 Review of Systems 2 Constitutional: Constitutional: Reports body ache(s), Reports chills, Reports fever(s) and Reports headache(s) Eyes: Eyes: Denies blurry vision ENT: Reports headache(s) and Denies sore throat Cardiovascular: Cardiovascular: Denies chest pain and Denies dyspnea Respiratory: Respiratory: Reports cough and Denies dyspnea Gastrointestinal: Gastrointestinal: Denies abdominal pain, Reports diarrhea, Reports nausea and Reports vomiting Musculoskeletal: Musculoskeletal: Denies back pain Integumentary/Breasts: Skin/Breast: Denies rash Neurologic: Reports headache(s) PMFSH Family History Family History Father Hypertension Social History Social History Alcohol intake: former Patient Tobacco Use Status: Never used Tobacco Smoked in Last 30 Days: No Use of substances other than those prescribed or required for medical reasons: Yes Substance Use Type: Marijuana Advance Directives: Yes Advance Directives on File: Yes Advance Directives Date on File: 03/13/22 Do you have a plan to hurt others: No Plan service: No Current occupational status: unemployed Physical Exam ED Vital Signs: Vital Signs - 24 hr 08/09/24 14:37 08/09/24 16:09 08/09/24 18:33 Temperature 98.7 F 98.2 F 98.1 F Pulse Rate 113 H 108 H 100 Respiratory Rate 18 20 20 Blood Pressure 166/88 H 138/94 H 141/89 H Pulse Oximetry 97 99 97 Oxygen Delivery Method Room Air Room Air Room Air BMI result Body Mass Index 30.9 Const General: healthy appearing, comfortable, no acute distress, alert and awake Nutritional Appearance: well nourished Orientation/consciousness: patient oriented x3 HENMT Head: Yes normocephalic and Yes atraumatic Eyes Eyelids: Yes eyelids normal Conjunctivae: conjunctivae normal Sclerae: sclerae normal Corneas: corneas normal Pupils: Equal, round and reactive pupils present EOM: EOMs intact bilaterally Neck Neck: Yes full ROM Resp Effort & Inspection: normal respiratory effort, able to speak in complete sentences, no audible wheezes and not labored Auscultation: clear to auscultation bilaterally Cardio Rate: regular rate Rhythm: regular rhythm GI Other: Patient has a 2 x 3 cm area of erythema with induration and tenderness to the left flank above the left hip. There is some central skin breakdown but no drainage. Inspection: No distended Palpation (GI): Soft to palpation, not firm, nontender, no guarding and not rigid Skin General skin exam: elasticity normal Neuro General: patient oriented x3 Cranial nerves: Yes Equal, round and reactive pupils present and Yes Bilaterally intact EOM present Cognition (Neuro): normal cognition Extrem Other: Moving all extremities well without any obvious deformities Medications Administered Discontinued Medications Generic Name Dose Route Start Last Admin Trade Name Tonya PRN Reason Stop Dose Admin Lidocaine/Epinephrine 10 ml 08/09/24 16:16 08/09/24 17:11 Lidocaine Hcl 1%/Epi 1:100,000 10 Ml Vial INFILTRATI 08/09/24 16:17 10 ml ONCE ONE Administration Procedures Abscess I/D Site: other (Left abdominal wall) Side (if applicable): left Local Anesthetic: lidocaine 1% and with epi Amount of anesthesia used (mL): 6 Technique: incised with blade Amount of fluid expressed (mL): 4 Sent for culture/gram staining?: No Irrigation: Yes Packing used?: none Medical Decision Making Medical Decision Making [facility] Narrative: 34-year-old healthy male presents for evaluation of a skin infection to the left flank/above his left hip. This appears to be localize the skin, we will perform incision and drainage. Basic labs were ordered in triage, given his cough, body aches, nausea and vomiting will also order influenza and COVID testing. Incision and drainage performed by PA student Vincent Ruiz under my direct supervision. Differential Diagnosis Differential Diagnoses: The differential diagnosis associated with the presentation includes Viral syndrome COVID-19 Influenza Cellulitis Abscess Lab Data [facility] Lab Attestation statement: I reviewed the patient's lab results. The patient has a leukocytosis to 14.7 with a mild anemia. Normal platelet count. No significant electrolyte abnormalities. Renal function within normal limits. 08/09/24 15:18 08/09/24 15:18 Labs: Lab Results 08/09/24 08/09/24 Range/Units 15:18 16:22 WBC 14.7 H (4.8-10.8) X10*3/uL RBC 4.31 L (4.60-5.80) X10*6/uL Hgb 13.2 L (14.0-18.0) g/dl Hct 38.0 L (42.0-52.0) % MCV 88.2 (80.0-98.0) fL MCH 30.6 (27.0-33.0) pg MCHC 34.7 (31.0-36.0) g/dl RDW 14.2 (11.0-16.0) % Plt Count 291 (160-400) X10*3/uL MPV 10.4 (9.4-12.4) fL Immature Gran % (Auto) 0.3 (0.0-0.4) % Neut % (Auto) 77.5 H (45-73) % Lymph % (Auto) 15.9 L (20-40) % [place] % (Auto) 6.0 (2-11) % Eos % (Auto) 0.1 (0-4) % Baso % (Auto) 0.2 (0-2) % Lymph # (Auto) 2.3 (1.2-4.9) X10*3/uL [place] # (Auto) 0.9 (0.1-1.2) X10*3/uL Eos # (Auto) 0.0 (0.0-0.4) X10*3/uL Baso # (Auto) 0.0 (0.0-0.2) X10*3/uL Abs Immat Gran (auto) 0.05 H (0.00-0.03) X10*3/uL Absolute Neuts (auto) 11.4 H (2.0-8.3) x10*3/uL Absolute Nucleated RBC 0.000 (0.0-0.012) X10*3/uL Nucleated RBC % (auto) 0.0 (0.0-0.2) /100WBC Sodium 139 (135-145) mmol/L Potassium 3.8 (3.3-5.1) mmol/L Chloride 101 (96-108) mmol/L Carbon Dioxide 27 (22-29) mmol/L Anion Gap 15 (12-20) BUN 8 L (9-16) mg/dL Creatinine 0.95 (0.5-1.4) mg/dL Estim Creat Clear Calc 107.6 Estimated GFR > 60 Random Glucose 93 (60-115) mg/dL Calcium 10.3 H (8.4-10.2) mg/dL Total Bilirubin 0.4 (0.0-1.0) mg/dL AST 28 (5-37) U/L ALT 32 (0-40) U/L Alkaline Phosphatase 107 (39-117) U/L Total Protein 8.3 H (6.5-8.0) g/dL Albumin 4.5 (3.5-5.0) g/dL COVID-19 (PEGGY) Negative (Negative) COVID-19 Clin Com See Note Influenza Type A (SNEHA) Negative (Negative) Influenza Type B (SNEHA) Negative (Negative) Influenza A & B Note See Note Radiology Impression Discussion of test interpretation with radiology: I have reviewed the radiologist's reading. Radiologist Impression: FINDINGS: No significant abnormality is noted involving the heart, lungs, mediastinum, bony thorax or soft tissues. XR/XR chest 2V IMPRESSION: Normal chest PA and lateral. Electronically signed by: Jabari Alcantar MD 08/09/2024 06:57 PM EST Discharge Plan Discharge Clinical Impression: Abscess of abdominal wall Patient Disposition: Home, Self-Care Instructions: Incision and Drainage (ED) Additional Instructions: Take cephalexin 4 times daily for the next 7 days. Apply warm compresses to the painful area. Keep the area clean and dry. Use ibuprofen/Tylenol for pain Follow-up with your primary doctor, return for new or worsening symptoms Prescriptions: New cephalexin 500 mg tablet 500 mg PO QID Qty: 28 0RF No Action trazodone 50 mg tablet 1 tab PO BEDTIME PRN (Reason: nightmare) mirtazapine 15 mg tablet 1 tab PO BEDTIME PRN (Reason: Insomnia) prazosin 2 mg capsule 1 cap PO BEDTIME PRN (Reason: Insomnia) ibuprofen 600 mg tablet 600 mg PO Q6H PRN (Reason: fever or pain) Qty: 14 0RF cyclobenzaprine 10 mg tablet 10 mg PO TID PRN (Reason: muscle spasm) Qty: 7 0RF doxycycline hyclate 100 mg capsule 100 mg PO BID 7 Days Qty: 14 0RF ondansetron 4 mg tablet,disintegrating 4 mg PO Q8H PRN (Reason: nausea and vomiting) Qty: 20 0RF nitrofurantoin monohyd/m-cryst [Macrobid] 100 mg capsule 100 mg PO Q12H 7 Days Qty: 14 0RF Rx Instructions: must administer with a meal/food Print Language: Maltese
[2024-08-09 16:42] LABS: IDNOW Serial# 08D9AD1C
[2024-08-09 16:43] LABS: COVID-19 Test Negative (Negative); IDNOW Serial# 152EDE1D; Influenza A Negative (Negative); Influenza B2 Negative (Negative)
[2024-08-09] MEDS: Lidocaine HCl 1%/Epi 1:100,000 10 ML VIAL INFILTRATI (17:11)
[2024-08-09 18:33] VITALS: BP 141/89; PULSE 100; RESP 20; TEMP 36.7; O2SAT 97
[2024-08-09] MEDS: cephALEXin 500 MG CAPSULE PO (19:29)
[2024-08-09 19:32] VITALS: BP 141/89; PULSE 100; RESP 20; TEMP 36.7; O2SAT 97
== END 2024-08-09 19:33 | disposition home or self-care (01) ==
PROVIDERS: Physician Assistant; Emergency Provider Internal Medicine
DX: L02.211 Cutaneous abscess of abdominal wall (principal); R05.9 Cough, unspecified; Z03.818 Encounter for observation for suspected exposure to other biological agents ruled out
CPT/HCPCS: 10060; 36415; 71046; 80053; 85025; 87502; 87635; 93005; 99284; J2004

== ENCOUNTER → 2024-08-09 15:00 | Outpatient (BNV) | payer MEDICAID, SELFPAY | PROVIDERS: Emergency Provider Internal Medicine; Visit Provider Internal Medicine Cardiovascular Disease | DX: R00.0 Tachycardia, unspecified (principal) | CPT/HCPCS: 93010 ==

== ENCOUNTER 2024-09-06 16:23 | Emergency (ER) | payer MEDICAID, SELFPAY ==
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
[2024-09-06 16:34] VITALS: BP 158/96; PULSE 121; RESP 18; TEMP 37.2; O2SAT 98
[2024-09-06] MEDS: Lidocaine HCl 1 % MPF 5 ML VIAL INFILTRATI (16:54)
[2024-09-06] MEDS: Acetaminophen 325 MG TABLET 975 MG PO (16:54)
[2024-09-06 17:01] VITALS: BP 180/88; PULSE 78; O2SAT 99
[2024-09-06 17:04] VITALS: BP 150/88; PULSE 121; RESP 20; TEMP 37.2; O2SAT 99; BMI 34.1
[2024-09-06 17:06] VITALS: BMI 34.1
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
[2024-09-06 17:48] VITALS: BP 147/84; PULSE 105; RESP 16; TEMP 36.6; O2SAT 99
[2024-09-06 17:52] VITALS: BP 147/84; PULSE 105; RESP 16; TEMP 36.6; O2SAT 99
== END 2024-09-06 17:53 ==
PROVIDERS: Emergency Provider Emergency Medicine Emergency Medical Services
DX: S01.81XA Laceration without foreign body of other part of head, initial encounter (principal); Y04.2XXA Assault by strike against or bumped into by another person, initial encounter; Y93.89 Activity, other specified; Y92.521 Bus station as the place of occurrence of the external cause; Y99.9 Unspecified external cause status
CPT/HCPCS: 12011; 70486; 99283; 99284; J2003

== ENCOUNTER 2024-11-15 02:50 | Emergency (ER) | payer MEDICAID, SELFPAY ==
[2024-11-15 02:52] VITALS: BP 170/100; BP 175/95; PULSE 115; PULSE 130; RESP 20; TEMP 36.8; O2SAT 97; BMI 30.4
[2024-11-15 03:06] LABS: MANUAL DIFF FLAG NO
[2024-11-15] MEDS: Famotidine/PF 20 MG/2 ML VIAL IVPUSH (03:06)
[2024-11-15] MEDS: ondansetron HCL 4 MG/2 ML VIAL IVPUSH (03:06)
[2024-11-15] MEDS: 0.9 % Sodium Chloride 1,000 ML 999 ML IV (03:06)
[2024-11-15 03:07] LABS: Basophils Percent Auto 0.3 % (0-2); Eosinophils Percent Auto 0.3 % (0-4); Hematocrit 35.8 % (42.0-52.0); Hemoglobin 12.8 g/dl (14.0-18.0); Imm Gran Abs Auto 0.06 X10*3/uL (0.00-0.03); Imm Gran Pct Auto 0.6 % (0.0-0.4); Lymphocytes Absolute Auto 3.7 X10*3/uL (1.2-4.9); Lymphocytes Percent Auto 35.6 % (20-40); Mean Corpuscular HGB Conc 35.8 g/dl (31.0-36.0); Mean Corpuscular Hemoglobin 31.5 pg (27.0-33.0); Mean Corpuscular Volume 88.2 fL (80.0-98.0); Mean Platelet Volume 11.4 fL (9.4-12.4); Monocytes Absolute Auto 1.1 X10*3/uL (0.1-1.2); Monocytes Percent Auto 10.4 % (2-11); Neutrophils Absolute Auto 5.6 x10*3/uL (2.0-8.3); Neutrophils Percent Auto 52.8 % (45-73); Platelet Count 257 X10*3/uL (160-400); Red Blood Count 4.06 X10*6/uL (4.60-5.80); Red Cell Distribution Width 12.8 % (11.0-16.0); White Blood Count 10.5 X10*3/uL (4.8-10.8)
[2024-11-15 03:31] LABS: Alanine Aminotransferase 24 U/L (0-40); Albumin Level 3.8 g/dL (3.5-5.0); Anion Gap 15 (12-20); Aspartate Amino Transferase 42 U/L (5-37); Bilirubin Total 0.4 mg/dL (0.0-1.0); Blood Urea Nitrogen 13 mg/dL (9-16); Calcium 9.5 mg/dL (8.4-10.2); Carbon Dioxide 25 mmol/L (22-29); Chloride 98 mmol/L (96-108); Creatinine Clr Calc Pharmacy 107.3; Estimated Glomerular Filt Rate > 60; Glucose Random 125 mg/dL (60-115); Lipase 14 U/L (8-78); Potassium 3.2 mmol/L (3.3-5.1); Sodium 135 mmol/L (135-145); Total Protein 8.4 g/dL (6.5-8.0)
[2024-11-15 03:37] LABS: Alkaline Phosphatase 70 U/L (39-117)
--- NOTE | 2024-11-15 04:14 | ED.NAVMDI ---
HPI - Nausea/Vomiting/Diarrhea General Chief complaint: Nausea/Vomiting/Diarrhea Stated complaint: VOMMITTING BLOOD / NAUSEA Time Seen by Provider: 11/15/24 02:56 Source: patient Mode of arrival: ambulatory Limitations: no limitations History of Present Illness ED Provider: HPI Narrative: Patient recently diagnose with strep throat 3 days ago on penicillin comes here been vomiting since yesterday and been smoking marijuana vomitus contained bright red blood slight epigastric pain no history of ulcers no melena Related Data Home Medications ?Medication ?Instructions ?Recorded ?Confirmed mirtazapine 15 mg tablet 1 tab PO BEDTIME PRN Insomnia 03/13/22 03/13/22 prazosin 2 mg capsule 1 cap PO BEDTIME PRN Insomnia 03/13/22 03/13/22 trazodone 50 mg tablet 1 tab PO BEDTIME PRN nightmare 03/13/22 03/13/22 Previous Rx's ?Medication ?Instructions ?Recorded cyclobenzaprine 10 mg tablet 10 mg PO TID PRN muscle spasm #7 02/08/23 tabs ibuprofen 600 mg tablet 600 mg PO Q6H PRN fever or pain 02/08/23 #14 tabs doxycycline hyclate 100 mg capsule 100 mg PO BID 7 days #14 caps 09/07/23 nitrofurantoin 100 mg PO Q12H 7 days #14 caps 09/07/23 monohydrate/macrocrystals 100 mg capsule (Macrobid) ondansetron 4 mg disintegrating 4 mg PO Q8H PRN nausea and 09/07/23 tablet vomiting #20 tabs cephalexin 500 mg tablet 500 mg PO QID #28 tabs 08/09/24 omeprazole 40 mg capsule,delayed 40 mg PO DAILY #20 caps 11/15/24 release Allergies Allergy/AdvReac Type Severity Reaction Status Date / Time tramadol [TRAMADOL] Allergy Unknown RASH Verified 11/15/24 02:56 Review of Systems Review of Systems: Yes all other systems are reviewed and are negative PMFSH Family History Family History Father Hypertension Social History Social History Alcohol intake: former Patient Tobacco Use Status: Never used Tobacco Substance Use Type: Marijuana Advance Directives Date on File: 03/13/22 service: No Current occupational status: unemployed Physical Exam Vital Signs: Vital Signs: Last Vital Signs Temp 98.2 F 11/15/24 02:52 Pulse 115 H 11/15/24 02:52 Resp 20 11/15/24 02:52 BP 175/95 H 11/15/24 02:52 Pulse Ox 97 11/15/24 02:52 O2 Del Method Room Air 11/15/24 02:52 BMI result Body Mass Index 30.4 Appearance: Alert. Oriented X3. No acute distress. Eyes: PERRLA, No Nystagmus ENT: Pharynx normal. Oral Mucosa moist Neck: Normal inspection. Neck supple. CVS: Normal heart rate and rhythm. Pulses normal. Respiratory: No respiratory distress. Equal air entry bilateral, no wheezing/rales/rhonchi Abdomen: Soft and epigastric tenderness++. Bowel sounds are present, no mass palpable, no CVA tenderness Skin: Skin warm and dry. Normal skin color. Normal skin turgor. Extremities: No lower extremity edema. No calf tenderness Neuro: Oriented X 3. No motor deficit. Medications Administered Discontinued Medications Generic Name Dose Route Start Last Admin Trade Name Freq PRN Reason Stop Dose Admin Famotidine 20 mg 11/15/24 02:56 11/15/24 03:06 Famotidine/Pf 20 Mg/2 Ml Vial IVPUSH 11/15/24 02:57 20 mg ONCE ONE Administration Sodium Chloride 1,000 mls @ 999 mls/hr 11/15/24 02:56 11/15/24 04:12 Ns IV 11/15/24 03:56 Infused .Q1H1M ONE Infusion Ondansetron HCl 4 mg 11/15/24 02:56 11/15/24 03:06 Ondansetron Hcl 4 Mg/2 Ml Vial IVPUSH 11/15/24 02:57 4 mg ONCE ONE Administration Potassium Chloride 20 meq 11/15/24 04:16 11/15/24 04:35 Potassium Chloride Er 20 Meq Tab.Er.Prt PO 11/15/24 04:17 20 meq ONCE ONE Administration Medical Decision Making Lab Data [facility] Lab Attestation statement: I reviewed the patient's lab results. 11/15/24 03:02 11/15/24 03:02 Labs: Lab Results 11/15/24 Range/Units 03:02 WBC 10.5 (4.8-10.8) X10*3/uL RBC 4.06 L (4.60-5.80) X10*6/uL Hgb 12.8 L (14.0-18.0) g/dl Hct 35.8 L (42.0-52.0) % MCV 88.2 (80.0-98.0) fL MCH 31.5 (27.0-33.0) pg MCHC 35.8 (31.0-36.0) g/dl RDW 12.8 (11.0-16.0) % Plt Count 257 (160-400) X10*3/uL MPV 11.4 (9.4-12.4) fL Immature Gran % (Auto) 0.6 H (0.0-0.4) % Neut % (Auto) 52.8 (45-73) % Lymph % (Auto) 35.6 (20-40) % [place] % (Auto) 10.4 (2-11) % Eos % (Auto) 0.3 (0-4) % Baso % (Auto) 0.3 (0-2) % Lymph # (Auto) 3.7 (1.2-4.9) X10*3/uL [place] # (Auto) 1.1 (0.1-1.2) X10*3/uL Eos # (Auto) 0.0 (0.0-0.4) X10*3/uL Baso # (Auto) 0.0 (0.0-0.2) X10*3/uL Abs Immat Gran (auto) 0.06 H (0.00-0.03) X10*3/uL Absolute Neuts (auto) 5.6 (2.0-8.3) x10*3/uL Absolute Nucleated RBC 0.000 (0.0-0.012) X10*3/uL Nucleated RBC % (auto) 0.0 (0.0-0.2) /100WBC Sodium 135 (135-145) mmol/L Potassium 3.2 L (3.3-5.1) mmol/L Chloride 98 (96-108) mmol/L Carbon Dioxide 25 (22-29) mmol/L Anion Gap 15 (12-20) BUN 13 (9-16) mg/dL Creatinine 0.98 (0.5-1.4) mg/dL Estim Creat Clear Calc 107.3 Estimated GFR > 60 Random Glucose 125 H (60-115) mg/dL Calcium 9.5 D (8.4-10.2) mg/dL Total Bilirubin 0.4 (0.0-1.0) mg/dL AST 42 H (5-37) U/L ALT 24 (0-40) U/L Alkaline Phosphatase 70 (39-117) U/L Total Protein 8.4 H (6.5-8.0) g/dL Albumin 3.8 (3.5-5.0) g/dL Lipase 14 (8-78) U/L Discharge Plan Discharge Clinical Impression: Vomiting, Gastritis Patient Disposition: Home, Self-Care Instructions: Gastritis (ED), Acute Nausea and Vomiting (ED) Additional Instructions: Drink plenty of fluids Take Prilosec for gastritis Zofran for nausea/vomiting as prescribed Follow up with your PCP if not better Stop smoking marijuana as this could be causing the vomiting Prescriptions: New omeprazole 40 mg capsule,delayed release(DR/EC) 40 mg PO DAILY Qty: 20 0RF No Action trazodone 50 mg tablet 1 tab PO BEDTIME PRN (Reason: nightmare) mirtazapine 15 mg tablet 1 tab PO BEDTIME PRN (Reason: Insomnia) prazosin 2 mg capsule 1 cap PO BEDTIME PRN (Reason: Insomnia) ibuprofen 600 mg tablet 600 mg PO Q6H PRN (Reason: fever or pain) Qty: 14 0RF cyclobenzaprine 10 mg tablet 10 mg PO TID PRN (Reason: muscle spasm) Qty: 7 0RF cephalexin 500 mg tablet 500 mg PO QID Qty: 28 0RF doxycycline hyclate 100 mg capsule 100 mg PO BID 7 Days Qty: 14 0RF ondansetron 4 mg tablet,disintegrating 4 mg PO Q8H PRN (Reason: nausea and vomiting) Qty: 20 0RF nitrofurantoin monohyd/m-cryst [Macrobid] 100 mg capsule 100 mg PO Q12H 7 Days Qty: 14 0RF Rx Instructions: must administer with a meal/food Print Language: Malian
[2024-11-15] MEDS: Potassium Chloride ER 20 MEQ TAB.ER.PRT PO (04:35)
[2024-11-15 04:41] VITALS: BP 175/95; PULSE 115; RESP 20; TEMP 36.8; O2SAT 97
== END 2024-11-15 04:43 | disposition home or self-care (01) ==
PROVIDERS: Emergency Provider Internal Medicine
DX: K29.70 Gastritis, unspecified, without bleeding (principal); R10.13 Epigastric pain; F12.90 Cannabis use, unspecified, uncomplicated; Z79.899 Other long term (current) drug therapy
CPT/HCPCS: 36415; 80053; 83690; 85025; 96361; 96374; 96375; 99284; J2405

== ENCOUNTER 2024-11-29 04:23 | Emergency (ER) | payer MEDICAID, SELFPAY ==
--- NOTE | ~2024-11-29 | XR_ITS ---
CLINICAL HISTORY: pain s p fall ; PT states fall down stairs this morning, pain in left side ribs an d left hand/wrist. 4 view left hand Comparison: None Findings: No acute fracture or dislocation is identified. 1.0 cm well-defined ossification is seen adjacent to the distal ulna. Soft tissue structures appear within normal limits. IMPRESSION: 1. No acute osseous abnormality is identified. 2. 1.0 cm well-defined ossification adjacent to the distal ulna, which may represent sequela of remote injury or a secondary ossification center. This document has been electronically signed by: Gus Jimenez on 11/29/2024 08:46:37
--- NOTE | ~2024-11-29 | CT_ITS ---
CLINICAL HISTORY: neck pain s p fall PT UNABLE TO REMOVE PIERCINGS FOR EXAM CT cervical spine without contrast Comparison: CT/REG/SR - CT CERVICAL SPINE WO IV CON - 02/08/23 21:46 EDT Findings: Normal vertebral body alignment. No significant degenerative change. No acute fractures or dislocations. No cervical fluid collections or masses. No consolidation or effusion at the lung apices. IMPRESSION: No acute osseous abnormality is identified. This document has been electronically signed by: Gus Jimenez on 11/29/2024 07:21:51
--- NOTE | ~2024-11-29 | XR_ITS ---
CLINICAL HISTORY: rib pain s p fall ; PT states fall down stairs this morning, pain in left side rib s and left hand/wrist. 5 view, chest and left ribs Comparison: CR/SR - XR CHEST 2V - 08/09/24 17:45 EST Findings: No acute fracture is identified. The heart is normal in size. The lungs are clear. IMPRESSION: No acute left rib fracture is identified. This document has been electronically signed by: Gus Jimenez on 11/29/2024 08:46:14
--- NOTE | ~2024-11-29 | CT_ITS ---
CLINICAL HISTORY: fall with head strike PT UNABLE TO REMOVE PIERCINGS FOR EXAM CT head without contrast Comparison: CT/SR - CT HEAD/BRAIN WO IV CON - 02/08/23 21:46 EDT Findings: No intra-axial mass, midline shift, hydrocephalus, or acute hemorrhage. No significant atrophy-like change or white matter disease. The visualized paranasal sinuses and mastoid air cells are normal. The orbital contents are unremarkable. 0.8 cm metallic density is seen inferolateral to the left orbit. There is no acute fracture. IMPRESSION: 1. No acute intracranial abnormality. 2. 0.8 cm metallic density inferolateral to the left orbit, which may represent a small foreign body or piercing. Recommend clinical correlation. This document has been electronically signed by: Gus Jimenez on 11/29/2024 07:26:05
[2024-11-29 04:42] VITALS: BP 140/100; PULSE 62; PULSE 87; RESP 16; TEMP 36.9; O2SAT 98; BMI 29.3
--- NOTE | 2024-11-29 04:46 | PC.NURSE ---
pt is in C-SPine precaution. pt is A&O, able to speak in full sentences
--- OUTSIDE RECORDS SUMMARY | 2024-11-29 04:49 | XMS_ITS | Encounter Summary ---
Author Organization [facility] Address [address] [place] [address] Care Team Providers Care Pruner Name Role Phone Devon Sanchez SENIOR C SOFTWARE DEVELOPER-C Primary Care Provider [phone] Reason for Visit * Reason Comments Sore Throat Encounter Details Date Type Department Care Team ([facility] st Contact Info) Description 11/12/2024 9:40 AM EST Office Visit [facility] [address] [place] [phone] Devon Sanchez FNP-C [address] [place] [phone] Sore throat (Primary Dx); Strep pharyngitis Social History Tobacco Use Types Packs/Day Years Used Date Smoking Tobacco: Former Cigarettes Passive Smoke Exposure: Past Smokeless Tobacco: Never Comments:luci Alcohol Use Standard Drinks/Week Comments Not Currently 0 (1 standard drink = 0.6 oz pure alcohol) rare because it hurts his stomach Social Connections Answer Date Recorded Connectedness 0 06/16/2024 Financial Resource Strain Answer Date R ecorded Financial Resource Strain 0 2018 Stress Answer Date Recorded Stress 0 05/10/2019 Physical Activity Answer Date Recorded Physical Activity 0 05/10/2019 Food Insecurity Answer Date Recorded Food 0 06/12/2024 Transportation Needs Answer Date Record ed Transportation 0 05/10/2019 Housing Stability Answer Date Recorded Housing 0 05/10/2019 Safety and Environment Answer Date Richard rded Safety 0 05/10/2019 Utilities Answer Date Recorded Utilities 0 05/10/2019 Employment Answer Date Recorded Stress 0 06/16/2024 Sex and Gender Information Value Date Recorded Sex Assigned at Male 10/24/2018 6:07 AM PST Legal Sex Male 11:36 AM PDT Gender Identity Male 10/24/2018 6:07 AM PST Sexual Orientation Straight 10/24/2018 6: 07 AM PST Occupation Industry Job Start Date Job End 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 Not on file Not on abe e Not on file documented as of this encounter Last Filed Vital Signs Vital Sign Reading Time Taken Comments Blood Pressure 158/105 11/12/2024 8:58 AM EST Pulse 116 11/12/2024 8:58 AM EST Temperature 37.7 ??C (99.9 ??F) 11/12/2024 8:58 AM ES T Respiratory Rate 16 11/12/2024 8:58 AM EST Oxygen Saturation - - Inhaled Oxygen Concentration - - Weight 85.3 kg (188 lb) 11/12/2024 8:58 AM EST Height 162.6 cm (5' 4 ) 11/12/2024 8:58 AM EST Body Mass Index 32.27 11/12/2024 8:58 AM EST documented in this encounter Progress Notes * MILE Forde - 11/12/2024 9:24 AM EST Subjective: CC: Sore 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 Reports difficulty to talk and open mouth Review of Systems Remainder ROS: See HPI, systems reviewed and are otherwise negative or noncontributory. Allergies Allergen Reactions Tramadol Rash Patient Active Problem List Diagnosis GERD (gastroesophageal reflux disease) Outbursts of anger Marijuana smoker History of cocaine abuse ([facility]) Tobacco abuse disorder Anxiety and depression Mandibular fracture ([facility]) Lumbar back pain with radiculopathy affecting left lower extremity Current Outpatient Medications: acetaminophen (TYLENOL) 500 mg tablet, Take 1 Tablet by mouth every 6 (six) hours as needed for pain, Disp: 60 Tablet, Rfl: 0 penicillin V potassium (VEETID) 500 mg tablet, Take 1 Tablet by mouth 3 (three) times daily for 10 days, Disp: 30 Tablet, Rfl: 0 cyclobenzaprine (FLEXERIL) 10 mg tablet, Take 1 Tablet by mouth 2 (two) times daily as needed for muscle spasms, Disp: 30 Tablet, Rfl: 0 guaiFENesin 400 mg tab, Take 1 Tablet by mouth every 4 (four) hours as needed for cough, Disp: 30 Tablet, Rfl: 0 lidocaine (LIDODERM) 5 % patch, Place 1 Patch onto the skin daily. Apply 1 patch to the affected area for a maximum of 12 hours, followed by removal for 12 hours., Disp: 30 Patch, Rfl: 0 acetaminophen (TYLENOL) 500 mg tablet, Take 1 Tablet by mouth every 4 (four) hours as needed for pain, Disp: 60 Tablet, Rfl: 0 cloNIDine (CATAPRES) 0.1 mg tablet, TAKE 1 TABLET BY MOUTH IN THE MORNING AND 1 TAB AT NOON, Disp: , Rfl: hydrOXYzine pamoate (VISTARIL) 50 mg capsule, Take 150 mg by mouth nightly at bedtime, Disp: , Rfl: mirtazapine (REMERON) 15 mg tablet, Take 15 mg by mouth nightly at bedtime, Disp: , Rfl: prazosin (MINIPRESS) 2 mg capsule, Take 4 mg by mouth nightly at bedtime, Disp: , Rfl: traZODone (DESYREL) 100 mg tablet, Take 100 mg by mouth nightly at bedtime, Disp: , Rfl: Objective: Vitals: 11/12/24 0858 BP: (!) 158/105 Pulse: (!) 116 Resp: 16 Temp: 99.9 ??F (37.7 ??C) TempSrc: Oral Weight: 188 lb (85.3 kg) Height: 5' 4 (1.626 m) Physical Exam Constitutional: General: He is not in acute distress. HENT: Mouth/Throat: Pharynx: Posterior oropharyngeal erythema present. Comments: Unable to fully visualize Cardiovascular: Rate and Rhythm: Regular rhythm. Tachycardia present. Pulmonary: Effort: Pulmonary effort is normal. No respiratory distress. Breath sounds: Normal breath sounds. Office Visit on 11/12/2024 Component Date Value Ref Range Status STREP A 11/12/2024 POSITIVE (A) NEGATIVE Final INTERNAL CONTROL 11/12/2024 PASS PASS Final Assessment and Plan: Harris Clifton is a 34 year old male patient who presents as walk-in to urgent care for evaluation of strep throat. J02.9 Sore throat (primary encounter diagnosis) Plan : ID NOW STREP A2 (POCT) J02.0 Strep pharyngitis Plan : PENICILLIN V POTASSIUM 500 MG TABLET - Take 1 Tablet by mouth 3 (three) times daily for 10 days ACETAMINOPHEN 500 MG TABLET - Take 1 Tablet by mouth every 6 (six) hours as needed for pain Plan: RTC if sx worsens Follow Up: Return for scheduled appt or PRN. documented in this encounter Miscellaneous Notes * Patient Instructions - MILE Forde - 11/12/2024 9:29 AM EST If you are not able to keep your appointment please call 24-48 hours before your appointment to cancel or reschedule. documented in this encounter Plan of Treatment Upcoming Encounters Date Type Department Care Team (Late st Contact Info) Description 12/02/2024 9:40 AM EDT Office Visit [address] [phone] Devon Sanchez FNP-C [address] [place] [phone] documented as of this encounter Procedures Procedure Name Priority Date/Time Associated Diagnosis Comments ID NOW STREP A2 (POCT) Routine 11/12/2024 9:15 AM EST Sore throat documented in this encounter Results * (ABNORMAL) ID NOW STREP A2 (POCT) (11/12/2024 9:15 AM EST) STREP A POSITIVE(A ) NEGATIVE [facility] OFFICE POCT INTERNAL CONTROL PASS PASS [facility] OFFICE POCT Swab Structure of anterior portion of neck / Unknown 11/12/2024 9:15 AM EST us Devon [facility] - NO BLOOD DRAW Final Result [facility] OFFICE POCT documented in this encounter Visit Diagnoses Diagnosis Sore throat- Primary Acute pharyngitis Strep pharyngitis Streptococcal sore throat documented in this encounter Additional Health Concerns Assessment Noted Time PHQ-9 Depression Total Score: 5 09/02/20 9:49 AM PST documented as of this encounter Care Teams Pruner Relationship Specialty Start Date End Date Devon Sanchez FNP-C [facility] [place] [address] PCP - General Internal Medicine 09/02/24 documented as of this encounter
--- NOTE | 2024-11-29 06:26 | ED_ITS ---
HPI - Fall General Chief Complaint: Fall Stated Complaint: FELL DOWN STAIRS Time Seen by Provider: 11/29/24 06:26 Source: patient and EMS Mode of arrival: EMS Limitations: no limitations History of Present Illness ED Provider: Gaby Dempsey PA-C HPI Narrative: 34 yo male presenting to the ER via EMS for evaluation of a fall. He states he tripped on a throw rug and he fell down 6-8 stairs. Patient states he hit his head but did not lose consciousness. Fell onto his left side, injuring his left lateral ribs. He reports hurts to take a deep breath and to move around. He also has some mild pain in the left wrist which is improving. He denies any neck pain, chest pain, abdominal pain. No lower extremity injuries. He is on anticoagulation. MD complaint: fall Onset (ago): hour(s) Fall from: down stairs (#) (6-8) Fall witnessed: no Place fall occurred: home Prolonged down time: no Symptoms prior to fall: none Context: tripped/slipped Location of injury: chest Location of injury - extremities: left: hand Severity: moderate Severity scale (1-10): 7 Quality: aching Associated symptoms (after fall): denies Related Data Home Medications ?Medication ?Instructions ?Recorded ?Confirmed mirtazapine 15 mg tablet 1 tab PO BEDTIME PRN Insomnia 03/13/22 03/13/22 prazosin 2 mg capsule 1 cap PO BEDTIME PRN Insomnia 03/13/22 03/13/22 trazodone 50 mg tablet 1 tab PO BEDTIME PRN nightmare 03/13/22 03/13/22 Previous Rx's ?Medication ?Instructions ?Recorded cyclobenzaprine 10 mg tablet 10 mg PO TID PRN muscle spasm #7 02/08/23 tabs ibuprofen 600 mg tablet 600 mg PO Q6H PRN fever or pain 02/08/23 #14 tabs doxycycline hyclate 100 mg capsule 100 mg PO BID 7 days #14 caps 09/07/23 nitrofurantoin 100 mg PO Q12H 7 days #14 caps 09/07/23 monohydrate/macrocrystals 100 mg capsule (Macrobid) ondansetron 4 mg disintegrating 4 mg PO Q8H PRN nausea and 09/07/23 tablet vomiting #20 tabs cephalexin 500 mg tablet 500 mg PO QID #28 tabs 08/09/24 omeprazole 40 mg capsule,delayed 40 mg PO DAILY #20 caps 11/15/24 release cyclobenzaprine 10 mg tablet 10 mg PO TID PRN muscle spasm #7 11/29/24 tabs ibuprofen 600 mg tablet 600 mg PO Q8H PRN pain #10 tabs 11/29/24 Allergies Allergy/AdvReac Type Severity Reaction Status Date / Time tramadol [TRAMADOL] Allergy Unknown RASH Verified 11/29/24 04:46 Review of Systems Review of Systems: Yes all other systems are reviewed and are negative [facility] Family History Family History Father Hypertension Social History Social History Alcohol intake: former Patient Tobacco Use Status: Never used Tobacco Substance Use Type: Marijuana Advance Directives Date on File: 03/13/22 service: No Current occupational status: unemployed Physical Exam Vital Signs: Vital Signs: Last Vital Signs Temp 98.0 F 11/29/24 09:40 Pulse 90 11/29/24 09:40 Resp 18 11/29/24 09:40 BP 130/85 11/29/24 09:40 Pulse Ox 100 11/29/24 09:40 O2 Del Method Room Air 11/29/24 09:40 BMI result Body Mass Index 29.3 Appearance: Alert. Oriented X3. No acute distress. Head: normocephalic, atraumatic. Eyes: Pupils equal, round and reactive to light. ENT: Pharynx normal. No tonsillar swelling or exudate. Neck: in cervical collar CVS: Normal heart rate and rhythm. Pulses normal. Respiratory: No respiratory distress. Breath sounds normal. Left lateral rib tenderness, diffuse. No crepitus palpable, no visible ecchymosis Abdomen: Soft and nontender. +BS x4. No palpable hepatosplenomegaly Skin: Skin warm and dry. Normal skin color. Normal skin turgor. No rashes. Extremities: No lower extremity edema. No joint swelling. Full range of motion of the left wrist with some pain upon flexion. Neurovascularly intact distally. No point tenderness. Pelvis is stable, nontender hips. Full range of motion of the knees and lower extremities. Neuro/psych: Oriented X 3. No motor deficit. No sensory deficit. CN II-XII intact. Normal speech and cognition. Medical Decision Making Medical Decision Making MDM Narrative: 34 yo male presenting for evaluation s/p fall down 6-8 stairs, no LOC. pain is primarily in the left anterior ribs. improving left wrist pain. he has a mild headache. no vomiting. no focal neuro exam CT head/c-spine unremarkable. C collar cleared with no tenderness or pain with ROM VS are stable. XR ribs without acute fracture. left wrist/hand without fracture counseled on contusion, head injury precuations. he is stable upon re- evaluation. stable for d/c home with supportive care. Differential Diagnosis Differential Diagnoses: The differential diagnosis associated with the presentation includes concussion, head bleed, rib fracture, PTX, pulmonary contusion, wrist sprain, wrist fracture Admission/Observation Consideration of admission/observation: Escalation of care including admission/observation considered Independent Interpretation I performed an independent interpretation of an: Plain X-Ray and CT Scan Interpretation: xr chest without acute rib fx or PTX CT head without acute bleed or edema Radiology Impression Discussion of test interpretation with radiology: I have reviewed the radiologist's reading. Independent Historian Clinical information obtained from an independent historian. History obtained from or confirmed by: EMS External Record Review External record reviewed: Prior outpatient labs Prescription Management I considered prescription management with: Pain Medication Critical Care Time Critical Care Time Critical Care Time: No Discharge Plan Discharge Clinical Impression: Contusion of rib on left side Qualifiers: Encounter type: initial encounter Qualified Code(s): S20.212A - Contusion of left front wall of thorax, initial encounter Patient Disposition: Home, Self-Care Instructions: Rib Contusion (ED) Additional Instructions: Your CT scans and x-rays today were normal. Rest, no strenuous activity. Expect to be sore for the next few days. Use ice or heat several times per day for the next 48 hours. Take the prescribed medications as needed. Follow up with your doctor as needed. Prescriptions: New cyclobenzaprine 10 mg tablet 10 mg PO TID PRN (Reason: muscle spasm) Qty: 7 0RF ibuprofen 600 mg tablet 600 mg PO Q8H PRN (Reason: pain) Qty: 10 0RF No Action trazodone 50 mg tablet 1 tab PO BEDTIME PRN (Reason: nightmare) mirtazapine 15 mg tablet 1 tab PO BEDTIME PRN (Reason: Insomnia) prazosin 2 mg capsule 1 cap PO BEDTIME PRN (Reason: Insomnia) ibuprofen 600 mg tablet 600 mg PO Q6H PRN (Reason: fever or pain) Qty: 14 0RF cyclobenzaprine 10 mg tablet 10 mg PO TID PRN (Reason: muscle spasm) Qty: 7 0RF cephalexin 500 mg tablet 500 mg PO QID Qty: 28 0RF doxycycline hyclate 100 mg capsule 100 mg PO BID 7 Days Qty: 14 0RF ondansetron 4 mg tablet,disintegrating 4 mg PO Q8H PRN (Reason: nausea and vomiting) Qty: 20 0RF nitrofurantoin monohyd/m-cryst [Macrobid] 100 mg capsule 100 mg PO Q12H 7 Days Qty: 14 0RF Rx Instructions: must administer with a meal/food omeprazole 40 mg capsule,delayed release(DR/EC) 40 mg PO DAILY Qty: 20 0RF Interventions: ED Discharge Assessment Last Done: 11/29/24 09:40 Discharge Date/Time: 11/29/24 09:41 Print Language: Icelandic
[2024-11-29 06:53] VITALS: BP 145/79; PULSE 77; RESP 16; TEMP 36.8; O2SAT 97
[2024-11-29 09:04] VITALS: BP 130/85; PULSE 90; RESP 18; TEMP 36.7; O2SAT 100
[2024-11-29 09:40] VITALS: BP 130/85; PULSE 90; RESP 18; TEMP 36.7; O2SAT 100
== END 2024-11-29 09:41 | disposition home or self-care (01) ==
PROVIDERS: Emergency Provider Emergency Medicine
DX: S20.212A Contusion of left front wall of thorax, initial encounter (principal); W10.8XXA Fall (on) (from) other stairs and steps, initial encounter; M25.532 Pain in left wrist; Y93.9 Activity, unspecified; Y92.018 Other place in single-family (private) house as the place of occurrence of the external cause; Y99.9 Unspecified external cause status
CPT/HCPCS: 70450; 71101; 72125; 73110; 73130; 99284

== ENCOUNTER → 2024-11-29 06:37 | Outpatient (BNV) | payer MEDICAID, SELFPAY | PROVIDERS: Emergency Provider Emergency Medicine; Visit Provider Radiology Vascular & Interventional Radiology | DX: S00.90XA Unspecified superficial injury of unspecified part of head, initial encounter (principal); M54.2 Cervicalgia; R07.82 Intercostal pain; M25.532 Pain in left wrist; M79.642 Pain in left hand | CPT/HCPCS: 70450; 71101; 72125; 73110; 73130 ==

== ENCOUNTER 2024-11-30 03:32 | Emergency (ER) | payer MEDICAID, SELFPAY ==
[2024-11-30 03:35] VITALS: BP 141/75; PULSE 93; RESP 16; TEMP 36.6; O2SAT 97; BMI 30.3
--- NOTE | 2024-11-30 03:46 | ED_ITS ---
HPI - Anxiety General Chief Complaint: Anxiety Stated Complaint: anxiety attack Time Seen by Provider: 11/30/24 03:46 Source: patient Mode of arrival: ambulatory Limitations: no limitations History of Present Illness ED Provider: HPI narrative: Patient's history of anxiety and depression ran out of his medication more than 1 week plan to see therapist next week patient's used to take clonidine and trazodone which she does not have anymore for last 1 week unable to sleep feel anxious Related Data Home Medications ?Medication ?Instructions ?Recorded ?Confirmed mirtazapine 15 mg tablet 1 tab PO BEDTIME PRN Insomnia 03/13/22 03/13/22 prazosin 2 mg capsule 1 cap PO BEDTIME PRN Insomnia 03/13/22 03/13/22 trazodone 50 mg tablet 1 tab PO BEDTIME PRN nightmare 03/13/22 03/13/22 Previous Rx's ?Medication ?Instructions ?Recorded cyclobenzaprine 10 mg tablet 10 mg PO TID PRN muscle spasm #7 02/08/23 tabs ibuprofen 600 mg tablet 600 mg PO Q6H PRN fever or pain 02/08/23 #14 tabs doxycycline hyclate 100 mg capsule 100 mg PO BID 7 days #14 caps 09/07/23 nitrofurantoin 100 mg PO Q12H 7 days #14 caps 09/07/23 monohydrate/macrocrystals 100 mg capsule (Macrobid) ondansetron 4 mg disintegrating 4 mg PO Q8H PRN nausea and 09/07/23 tablet vomiting #20 tabs cephalexin 500 mg tablet 500 mg PO QID #28 tabs 08/09/24 omeprazole 40 mg capsule,delayed 40 mg PO DAILY #20 caps 11/15/24 release cyclobenzaprine 10 mg tablet 10 mg PO TID PRN muscle spasm #7 11/29/24 tabs ibuprofen 600 mg tablet 600 mg PO Q8H PRN pain #10 tabs 11/29/24 clonidine HCl 0.1 mg tablet 0.1 mg PO BID PRN Anxiety #10 tabs 11/30/24 Allergies Allergy/AdvReac Type Severity Reaction Status Date / Time tramadol [TRAMADOL] Allergy Unknown RASH Verified 11/30/24 03:38 Review of Systems Review of Systems: Yes all other systems are reviewed and are negative PMFSH Family History Family History Father Hypertension Social History Social History Alcohol intake: former Patient Tobacco Use Status: Never used Tobacco Substance Use Type: Marijuana Advance Directives Date on File: 03/13/22 Do you have a plan to hurt others: No Plan service: No Current occupational status: unemployed Physical Exam Vital Signs: Vital Signs: Last Vital Signs Temp 97.8 F 11/30/24 03:35 Pulse 93 11/30/24 03:35 Resp 16 11/30/24 03:35 BP 141/75 H 11/30/24 03:35 Pulse Ox 97 11/30/24 03:35 O2 Del Method Room Air 11/30/24 03:35 BMI result Body Mass Index 30.3 Appearance: Alert. Oriented X3. Anxious Eyes: No pallor or icterus ENT: Pharynx normal. Oral Mucosa moist Neck: Normal inspection. Neck supple. CVS: Normal heart rate and rhythm. Pulses normal. Respiratory: No respiratory distress. Equal air entry bilateral, no wheezing/ rales/rhonchi Abdomen: Soft and nontender. Bowel sounds are present, no mass palpable, no CVA tenderness Skin: Skin warm and dry. Normal skin color. Normal skin turgor. Extremities: No lower extremity edema. No calf tenderness Neuro: Oriented X 3. No motor deficit. Medical Decision Making Medical Decision Making MDM Narrative: Patient's anxiety been clonidine which she ran out of medicine appendicitis therapist will give him few clonidine for 5 days Discharge Plan Discharge Clinical Impression: Acute anxiety Patient Disposition: Home, Self-Care Instructions: Anxiety (ED) Additional Instructions: Take medication for anxiety clonidine 1 tablet twice a day as needed follow up with your therapist and psychiatrist as scheduled Prescriptions: New clonidine HCl 0.1 mg tablet 0.1 mg PO BID PRN (Reason: Anxiety) Qty: 10 0RF No Action trazodone 50 mg tablet 1 tab PO BEDTIME PRN (Reason: nightmare) mirtazapine 15 mg tablet 1 tab PO BEDTIME PRN (Reason: Insomnia) prazosin 2 mg capsule 1 cap PO BEDTIME PRN (Reason: Insomnia) ibuprofen 600 mg tablet 600 mg PO Q6H PRN (Reason: fever or pain) Qty: 14 0RF cyclobenzaprine 10 mg tablet 10 mg PO TID PRN (Reason: muscle spasm) Qty: 7 0RF cephalexin 500 mg tablet 500 mg PO QID Qty: 28 0RF doxycycline hyclate 100 mg capsule 100 mg PO BID 7 Days Qty: 14 0RF ondansetron 4 mg tablet,disintegrating 4 mg PO Q8H PRN (Reason: nausea and vomiting) Qty: 20 0RF nitrofurantoin monohyd/m-cryst [Macrobid] 100 mg capsule 100 mg PO Q12H 7 Days Qty: 14 0RF Rx Instructions: must administer with a meal/food omeprazole 40 mg capsule,delayed release(DR/EC) 40 mg PO DAILY Qty: 20 0RF cyclobenzaprine 10 mg tablet 10 mg PO TID PRN (Reason: muscle spasm) Qty: 7 0RF ibuprofen 600 mg tablet 600 mg PO Q8H PRN (Reason: pain) Qty: 10 0RF Print Language: [place]
[2024-11-30] MEDS: cloNIDine HCL 0.1 MG TABLET PO (04:20)
[2024-11-30 04:23] VITALS: BP 131/90; PULSE 100; RESP 14; TEMP 36.4; O2SAT 99
[2024-11-30 04:26] VITALS: BP 131/90; PULSE 100; RESP 14; TEMP 36.4; O2SAT 99
== END 2024-11-30 04:26 | disposition home or self-care (01) ==
LOC: HO.ED 04:13
PROVIDERS: Emergency Provider Internal Medicine
DX: F41.9 Anxiety disorder, unspecified (principal); F32.A Depression, unspecified
CPT/HCPCS: 99283

== ENCOUNTER 2024-12-15 17:33 | Emergency (ER) | payer MEDICAID, SELFPAY ==
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
[2024-12-15 17:44] VITALS: BP 154/93; PULSE 106; RESP 18; TEMP 36.8; O2SAT 93; BMI 30.7
== END 2024-12-15 20:22 | disposition left against medical advice (07) ==
PROVIDERS: Emergency Provider Emergency Medicine; PCP Dentist General Practice
DX: R51.9 Headache, unspecified (principal)
CPT/HCPCS: 70150; 99281

== ENCOUNTER → 2024-12-15 18:00 | Outpatient (BNV) | payer MEDICAID, SELFPAY | PROVIDERS: PCP Dentist General Practice; Visit Provider Radiology Diagnostic Radiology | DX: Z03.89 Encounter for observation for other suspected diseases and conditions ruled out (principal) | CPT/HCPCS: 70150 ==